=== PATIENT | male | born 1995 | race Caucasian/White ===

== ENCOUNTER 2017-06-10 17:08 | Emergency (ER) | payer OTHER ==
[~2017-06-10] VITALS: Ht 180.3 cm; Wt 79.5 kg
[2017-06-10 17:09] VITALS: BP 138/68; PULSE 76; RESP 16; TEMP 98.8; O2SAT 100
[2017-06-10] MEDS ORDERED: SODIUM CHLOR 0.9% 1000 ML INJ 1,000 ML IV ONE (18:15)
[2017-06-10] MEDS ORDERED: SODIUM CHLORIDE 0.9% FLUSH 10 ML FLUSH IVF PRN (18:15)
--- NOTE | 2017-06-10 18:18 | PD ---
HPI Chief Complaint: Cardiac Complaint Time Seen by Provider: 18:02 Travel History International Travel<30 days: No Contact w/Intl Traveler<30days: No Traveled to known affect area: No History of Present Illness HPI 21-year-old male here for evaluation of palpitations. The patient reports that at around 11 AM today he felt palpitations in his chest described as squeezing sensation. He checked his heart rate and it was in the 90s which is unusually high for him. At time of my assessment at 6:10 PM the patient reports he feels improved and no longer has the sensation. He did drink more coffee than usual this morning as well as took a dose of DayQuil for nasal congestion. He denies fevers, chills, cough, or recent illness. No paresthesias or motor deficits. No dyspnea. No syncope or history of syncopal episodes. No family history of sudden cardiac . No illicit drug use. PFSH Past Medical History Medical History: Denies Significant Hx Past Surgical History Surgical History: No Previous Surgery Social History Alcohol Use: No Tobacco Use: No Substance Use: No Allergies-Medications (Allergen,Severity, Reaction): Coded Allergies: No Known Allergies (Unverified , 06/10/17) Reported Meds & Prescriptions Reported Meds & Active Scripts Active No Active Prescriptions or Reported Medications Review of Systems Except as stated in HPI: all other systems reviewed are Neg Physical Exam Narrative GENERAL: Well-developed, well-nourished, comfortable, no apparent distress. SKIN: Focused skin assessment warm/dry. HEAD: Atraumatic. Normocephalic. EYES: Pupils equal and round. No scleral icterus. No injection or drainage. ENT: Mucous membranes pink and moist. NECK: Trachea midline. No JVD. CARDIOVASCULAR: Regular rate and rhythm. No murmur appreciated. Distal pulses brisk and equal bilaterally. RESPIRATORY: No accessory muscle use. Clear to auscultation. Breath sounds equal bilaterally. MUSCULOSKELETAL: No obvious deformities. No clubbing. No cyanosis. No edema. NEUROLOGICAL: Awake and alert. No obvious cranial nerve deficits. Motor grossly within normal limits. Normal speech. PSYCHIATRIC: Appropriate mood and affect; insight and judgment normal. Data Data Last Documented VS Vital Signs Date Time Temp Pulse Resp B/P (MAP) Pulse Ox O2 Delivery O2 Flow Rate FiO2 06/10/17 18:57 64 16 131/71 (91) 100 Room Air 06/10/17 17:09 98.8 Orders Orders Electrocardiogram (06/10/17 ) Basic Metabolic Panel (Bmp) (06/10/17 18:08) Ckmb (Isoenzyme) Profile (06/10/17 18:08) Complete Blood Count With Diff (06/10/17 18:08) Prothrombin Time / Inr (Pt) (06/10/17 18:08) Act Partial Throm Time (Ptt) (06/10/17 18:08) Troponin I (06/10/17 18:08) Ecg Monitoring (06/10/17 18:08) Iv Access Insert/Monitor (06/10/17 18:08) Oximetry (06/10/17 18:08) Sodium Chloride 0.9% Flush (Ns Flush) (06/10/17 18:15) Sodium Chlor 0.9% 1000 Ml Inj (Ns 1000 M (06/10/17 18:15) Thyroid Stimulating Hormone (06/10/17 18:08) CKMB (06/10/17 18:10) CKMB% (06/10/17 18:10) Labs Laboratory Tests Test 06/10/17 18:10 White Blood Count 10.5 TH/MM3 Red Blood Count 4.52 MIL/MM3 Hemoglobin 15.2 GM/DL Hematocrit 43.4 % Mean Corpuscular Volume 96.0 FL Mean Corpuscular Hemoglobin 33.6 PG Mean Corpuscular Hemoglobin Concent 35.0 % Red Cell Distribution Width 12.6 % Platelet Count 239 TH/MM3 Mean Platelet Volume 8.9 FL Neutrophils (%) (Auto) 68.0 % Lymphocytes (%) (Auto) 23.1 % Monocytes (%) (Auto) 6.9 % Eosinophils (%) (Auto) 1.5 % Basophils (%) (Auto) 0.5 % Neutrophils # (Auto) 7.1 TH/MM3 Lymphocytes # (Auto) 2.4 TH/MM3 Monocytes # (Auto) 0.7 TH/MM3 Eosinophils # (Auto) 0.2 TH/MM3 Basophils # (Auto) 0.0 TH/MM3 CBC Comment DIFF FINAL Differential Comment Prothrombin Time 11.1 SEC Prothromb Time International Ratio 1.0 RATIO Activated Partial Thromboplast Time 26.6 SEC Blood Urea Nitrogen 11 MG/DL Creatinine 0.89 MG/DL Random Glucose 90 MG/DL Calcium Level 9.7 MG/DL Sodium Level 137 MEQ/L Potassium Level 4.2 MEQ/L Chloride Level 103 MEQ/L Carbon Dioxide Level 28.5 MEQ/L Anion Gap 6 MEQ/L Estimat Glomerular Filtration Rate 110 ML/MIN Total Creatine Kinase 115 U/L Creatine Kinase MB 0.8 NG/ML Troponin I LESS THAN 0.02 NG/ML Thyroid Stimulating Hormone 3rd Gen 1.470 uIU/ML MDM Medical Decision Making Medical Screen Exam Complete: Yes Emergency Medical Condition: Yes Differential Diagnosis Palpitations, metabolic abnormality, electrolyte abnormality, anemia, caffeine side effect Narrative Course Initial vital signs show heart rate 76, blood pressure 138/68, pulse ox 100% on room air, oral temp of 98.8F. CBC is unremarkable. BMP is unremarkable. Cardiac enzymes are negative. TSH is normal at 1.47 Patient was made aware of all findings. He is resting comfortably. His symptoms are likely secondary to caffeine and DayQuil intake today. His EKG does show signs of LVH. There is no family history of sudden cardiac . I told him that this could represent hypertrophic cardiomyopathy and advised that he follow-up as an outpatient with a user experience developer for an echocardiogram. Until that time he is not to exercise or fly air planes as he is a student at [employer]. Patient also advised to follow-up with a primary care physician this week. He was informed on when to return to the emergency department. He verbalizes understanding and agreement with plan. Diagnosis Primary Impression: Palpitations Scripts No Active Prescriptions or Reported Meds Kennedy Gomez MD Jun 10, 2017 18:18
[2017-06-10 18:44] LABS: AUTOMATED NEUTROPHIL # 7.1 TH/MM3 (1.8-7.7); BASOPHIL % 0.5 % (0.0-2.0); EOSINOPHIL # 0.2 TH/MM3 (0-0.4); EOSINOPHIL % 1.5 % (0.0-4.0); HEMATOCRIT 43.4 % (39.0-51.0); HEMO FLAGS DIFF FINAL; LYMPH % 23.1 % (9.0-44.0); LYMPHOCYTE # 2.4 TH/MM3 (1.0-4.8); MEAN CORPUSCULAR HEMOGLOBIN 33.6 PG (27.0-34.0); MONO % 6.9 % (0.0-8.0); PLATELET COUNT 239 TH/MM3 (150-450); RED BLOOD COUNT 4.52 MIL/MM3 (4.50-5.90); RED CELL DISTRIBUTION WIDTH 12.6 % (11.6-17.2); WHITE BLOOD COUNT 10.5 TH/MM3 (4.0-11.0)
[2017-06-10 18:57] VITALS: BP 131/71; PULSE 64; RESP 16; O2SAT 100
[2017-06-10 19:03] LABS: ANION GAP 6 MEQ/L (5-15); BICARBONATE 28.5 MEQ/L (21.0-32.0); BLOOD UREA NITROGEN 11 MG/DL (7-18); CHLORIDE 103 MEQ/L (98-107); GLOMERULAR FILTRATION RATE 110 ML/MIN (>89); POTASSIUM 4.2 MEQ/L (3.5-5.1); SODIUM (NA) 137 MEQ/L (136-145)
[2017-06-10 19:05] LABS: APTT (PATIENT) 26.6 SEC (24.3-30.1); PROTHROMBIN TIME - PATIENT 11.1 SEC (9.8-11.6)
[2017-06-10 19:08] LABS: CREATINE KINASE 115 U/L (39-308)
[2017-06-10 19:20] LABS: CKMB 0.8 NG/ML (0.5-3.6)
--- NOTE | 2017-06-11 10:38 | EKG ---
Date Performed: 06/10/2017 Time Performed: 17:22:55 PTAGE: 21 years EKG: Sinus rhythm WITH SINUS ARRHYTHMIA POSSIBLE LEFT VENTRICULAR HYPERTROPHY ABNORMAL ECG INTERPRETATION BASED ON A D EFAULT AGE OF 42 YEARS NO PREVIOUS TRACING DOCTOR: Spenser Saenz Interpretating Date/Time 06/11/2017 10:37:17
== END 2017-06-10 20:44 | disposition home or self-care (01) ==
LOC: NEPD 17:08
DX: R00.2 Palpitations (principal); R94.31 Abnormal electrocardiogram [ECG] [EKG]
CPT/HCPCS: 80048; 82550; 82552; 84443; 84484; 85025; 85610; 85730; 93005; 99284; J7030

== ENCOUNTER 2017-06-12 12:47 | Emergency (ER) | payer OTHER ==
[~2017-06-12] VITALS: Ht 180.3 cm; Wt 79.5 kg
[2017-06-12 12:51] VITALS: BP 138/82; PULSE 72; RESP 16; TEMP 98.4; O2SAT 100
--- NOTE | 2017-06-12 14:07 | PD ---
HPI . Left sided pain Chief Complaint: Musculoskeletal Complaint Time Seen by Provider: 13:20 Travel History International Travel<30 days: No Contact w/Intl Traveler<30days: No Traveled to known affect area: No History of Present Illness HPI 21-year-old male patient presents emergency department for evaluation of left- sided pain. Patient states he wasn't sure if it was his ribs or muscular nature. The pain wraps around the left side of his torso. The pain is exacerbated by movement and reproducible to palpation. Deep breathing does not affect the pain. The patient denies any injuries, traumas or falls. The patient states the only thing he can think of is he worked out really hard at the gym the other day. The patient denies any fevers, chills, nausea, vomiting , diarrhea, chest pain, palpations, shortness breath. The patient has no major medical history and doesn't take any daily medication. PFSH Past Medical History Medical History: Denies Significant Hx Diminished Hearing: No Past Surgical History Surgical History: No Previous Surgery Social History Alcohol Use: No Tobacco Use: No Substance Use: No Allergies-Medications (Allergen,Severity, Reaction): Coded Allergies: No Known Allergies (Unverified , 06/12/17) Reported Meds & Prescriptions Reported Meds & Active Scripts Active No Active Prescriptions or Reported Medications Review of Systems Except as stated in HPI: all other systems reviewed are Neg Physical Exam Narrative GENERAL: Well-nourished, well-developed 20-year-old male patient in no acute distress. Nontoxic appearing. SKIN: Focused skin assessment warm/dry. HEAD: Normocephalic. Atraumatic EYES: No scleral icterus. No injection or drainage. NECK: Supple, trachea midline. No JVD or lymphadenopathy. CARDIOVASCULAR: Regular rate and rhythm without murmurs, gallops, or rubs. RESPIRATORY: Breath sounds equal bilaterally. No accessory muscle use. GASTROINTESTINAL: Abdomen soft, non-tender, nondistended. MUSCULOSKELETAL: No obvious deformity, ecchymosis, erythema, cyanosis, or edema. Data Data Last Documented VS Vital Signs Date Time Temp Pulse Resp B/P (MAP) Pulse Ox O2 Delivery O2 Flow Rate FiO2 06/12/17 12:51 98.4 72 16 138/82 (100) 100 MDM Medical Decision Making Medical Screen Exam Complete: Yes Emergency Medical Condition: Yes Differential Diagnosis Differential diagnoses include but not limited to contusion, muscle strain, muscle sprain, fracture Narrative Course 21-year-old male patient presents to emergency room for evaluation of left sided torso pain after working out at the gym the other day. Patient denies any injuries or traumas to the area. There is no obvious deformity, ecchymosis , cyanosis, erythema, edema noted. The patient's physical exam, this clinical presentation and history is consistent with muscular strain. Patient will be given ibuprofen and her facility and discharged home with supportive care instructions. Patient relieved by diagnosis after physical exam. Diagnosis Primary Impression: Muscular pain Referrals: Primary Care Physician Patient Instructions: General Instructions, Muscle Strain (ED) Additional Instructions: Please return to emergency department if your symptoms return or worsen. Follow up with your primary care provider. May take ibuprofen to help with pain management. May use heating pads or ice packs to help with pain management. Scripts No Active Prescriptions or Reported Meds Disposition: 01 DISCHARGE HOME Condition: Stable Camille Talavera Jun 12, 2017 14:07
== END 2017-06-12 15:02 | disposition home or self-care (01) ==
LOC: NEPD 12:47
DX: R07.81 Pleurodynia (principal)
CPT/HCPCS: 99282